=== PATIENT | male | born 1980 | race African-American/Black ===

== ENCOUNTER 2018-11-17 04:20 | Emergency (ER) | payer OTHER ==
[~2018-11-17] VITALS: Ht 180.3 cm; Wt 86.2 kg
[2018-11-17 04:28] VITALS: BP 125/75
== END 2018-11-17 05:45 | disposition home or self-care (01) ==
LOC: ER 04:20
DX: J02.9 Acute pharyngitis, unspecified (principal); R59.1 Generalized enlarged lymph nodes; F17.210 Nicotine dependence, cigarettes, uncomplicated